=== PATIENT | male | born 1960 | race Caucasian/White ===

== ENCOUNTER → 2021-06-09 | Outpatient (CLI) | payer OTHER ==
[~2021-06-09] MED LIST: ASPIRIN 81M81 MG/TA2 PO; CARDENE 20MG CA20 M1 PO; GLUCOPHAGE1000 MG PO; NITROSTAT0.4 MG/TAB SL; TOPROL XL100 MG PO; ZESTRIL 20MG TA20 MG PO; ZOCOR 40MG40 MG PO
== END ==
LOC: COL.VAS 12:47
DX: R06.02 Shortness of breath (principal)

== ENCOUNTER 2024-03-28 16:02 | Inpatient (IN) | payer OTHER ==
[2024-03-28] VITALS (170 sets, daily range): BP systolic 111–138; BP diastolic 78–81; PULSE 70–94; TEMP 98.4–98.7; O2SAT 76–100
[~2024-03-28] VITALS: Ht 172.7 cm; Wt 88.9 kg
[~2024-03-28 16:02] MED LIST changes: +ASPIRIN E.C. 8181 MG PO; +LIPITOR20 MG PO; +LOPRESSOR 225 MG/TAB PO; +PLAVIX 75MG TAB75 MG PO; +PROAIR HFA0.09 MG/AC IH; +RANEXA 500MG T500 MG PO; +RT ADVAIR HFA 1112 G IH; +TRELEGY ELLIPT1 EACH IH; +TRULICITY1.5 MG/0.5 SQ; +UROXATRAL10 M1 PO; -ZESTRIL 20MG TA20 MG PO; +ZESTRIL40 MG PO
--- NOTE | 2024-03-28 18:36 | NUR ---
181 Report received from [facility] RN. 1836 Pt arrived to ICU via EMS stretcher. Pt transferred to ICU bed with assist. Pt changed into gown. Pt belongings (clothes, shoes, phone, and black bag) placed in cabinet in pt room. Pt attached to monitors. Transfer of care completed at this time. Pt settled into bed. Pt does not have any concerns at this time.
--- NOTE | 2024-03-28 19:00 | NUR ---
THIS NURSE RECIEVED REPORT FROM ADONIS GONZALEZ. PATIENT IS ALERT AND IN BED. PATIENT'S VITAL SIGNS ARE WNL AT THIS TIME. PATIENT HAS A 20G IN THE R AC. NO FLUIDS OR MEDICATIONS RUNNING AT THIS TIME. PATIENT STATED NO CONCERNS AT THIS MOMENT. BED IN LOW POSITION, CALL LIGHT WITHIN THE PATIENT'S REACH.
[2024-03-28 21:16] LABS: BASO % 0.4 % (0.0-2.0); EOS # 0.1 K/mm3 (0.0-0.7); GRAN # 7.3 K/mm3 (1.4-6.5); GRAN % 78.6 % (42.2-75.2); HEMOGLOBIN 11.7 g/dl (13.5-18.0); LYMPH # 1.2 K/mm3 (1.2-3.4); LYMPH % 13.1 % (20.0-51.0); MEAN CELL VOLUME 83 fl (80.0-100.0); MEAN CORPUSCULAR HEMOGLOBIN 28 pg (27-31); MEAN CORPUSCULAR HGB CONC 34 g/dl (33.0-37.0); MEAN PLATELET VOLUME 11.5 fl (7.4-10.4); MONO # 0.6 K/mm3 (0.1-0.6); MONO % 6.7 % (1.7-9.3); PLATELET COUNT 210 K/mm3 (130-400); RED BLOOD COUNT 4.16 M/mm3 (4.20-5.60); REDCELL DISTRIBUTION WIDTH-CV 12.9 % (11.5-14.5)
[2024-03-28 21:17] LABS: HEMATOCRIT 34.5 % (42.0-52.0)
[2024-03-28 21:34] LABS: ALBUMIN 2.6 g/dL (3.4-4.8); BILIRUBIN,TOTAL 0.7 mg/dL (0.2-1.2); CALCIUM 8.3 mg/dL (8.4-10.2); CREATININE, serum 4.64 mg/dL (0.72-1.25); POTASSIUM 4.7 mEq/L (3.5-4.5); TOTAL PROTEIN 5.8 g/dl (6.2-8.1)
[2024-03-28] MEDS ORDERED: Ranolazine ER 500 MG TAB PO SCH (22:56)
--- NOTE | 2024-03-28 23:00 | NUR ---
THIS NURSE PLACED A 16F BENZ ON THIS PATIENT. UPON URINE RETURN, THE BENZ WAS SECURED ON THE PATIENT'S LEFT LEG. 550 ML DRAINED INSTANTLY. PATIENT TOLERATED THE PROCEDURE VERY WELL. STATED A RELIEF OF PAIN IN THE ABDOMEN REGION.
[2024-03-28] MEDS ORDERED: LR 1,000 ML IV SCH (23:15)
[2024-03-28] MEDS ORDERED: Ondansetron 4 MG/2 ML VIAL IV PRN (23:15)
[2024-03-28] MEDS ORDERED: Acetaminophen 325 MG TAB PO PRN (23:15)
[2024-03-28] MEDS ORDERED: CIPROFLOXACIN IV SCH (23:45)
[2024-03-28] MEDS ORDERED: DEXTROSE IV SCH (23:45)
[2024-03-28] MEDS ORDERED: Albuterol/Ipratropium 3 MG-0.5 MG/3 ML Neb Soln IH PRN (23:45)
[2024-03-29] VITALS (702 sets, daily range): BP systolic 121–154; BP diastolic 76–116; PULSE 66–89; TEMP 97.6–98.7; O2SAT 84–100
[2024-03-29] MEDS ORDERED: Insulin Lispro (HumaLOG) SQ SCH
[2024-03-29 04:54] LABS: BASO # 0.1 K/mm3 (0.0-0.2); BASO % 0.7 % (0.0-2.0); EOS # 0.1 K/mm3 (0.0-0.7); EOS % 1.4 % (0.0-4.0); GRAN # 6.5 K/mm3 (1.4-6.5); HEMOGLOBIN 11.8 g/dl (13.5-18.0); LYMPH # 1.1 K/mm3 (1.2-3.4); LYMPH % 12.5 % (20.0-51.0); MEAN CELL VOLUME 82 fl (80.0-100.0); MEAN CORPUSCULAR HEMOGLOBIN 28 pg (27-31); MEAN CORPUSCULAR HGB CONC 34 g/dl (33.0-37.0); MEAN PLATELET VOLUME 11.4 fl (7.4-10.4); MONO # 0.7 K/mm3 (0.1-0.6); PLATELET COUNT 223 K/mm3 (130-400); RED BLOOD COUNT 4.22 M/mm3 (4.20-5.60); REDCELL DISTRIBUTION WIDTH-CV 13.1 % (11.5-14.5)
[2024-03-29 05:01] LABS: HEMATOCRIT 34.4 % (42.0-52.0)
[2024-03-29 05:28] LABS: ALBUMIN 2.7 g/dL (3.4-4.8); BILIRUBIN,TOTAL 0.7 mg/dL (0.2-1.2); CALCIUM 8.7 mg/dL (8.4-10.2); CREATININE, serum 3.13 mg/dL (0.72-1.25); POTASSIUM 4.3 mEq/L (3.5-4.5); TOTAL PROTEIN 5.9 g/dl (6.2-8.1)
--- NOTE | 2024-03-29 06:10 | NUR ---
PATIENT IS RESTING COMFORTABLY. PATIENT HAS A 16F BENZ IN, WITH NO DEPENDENT LOOPS OR KINKS NOTED. DRAINING ACCORDINGLY. PATIENT HAS A 20G TO THE R AC, WITH LR RUNNING AT 125 ML/HR. PATIENT HAS GLASSES AND THOSE ARE ON THE BEDSIDE TABLE. PHONE AND BAG ALSO ON THE BEDSIDE TABLE. PATIENT STATES SHOULD COME DURING THE DAY TODAY. PATIENT HAS BEEN VERY PLEASANT. BED IN LOW POSITION AND CALL LIGHT WITHIN THE PATIENT'S REAC.
[2024-03-29] MEDS ORDERED: Budesonide Neb Susp 0.5 MG/2 ML AMP IH SCH (07:00)
[2024-03-29] MEDS ORDERED: LR 1,000 ML IV SCH (07:15)
[2024-03-29] MEDS ORDERED: Dextrose 50% Water 25 GM/50 ML SYRINGE IV PRN (07:15)
[2024-03-29] MEDS ORDERED: Dextrose (Glucose) 15 GM (4 x 3.75 GM) Chewable TABLET PACK PO PRN (07:15)
[2024-03-29] MEDS ORDERED: Glucagon 1 MG VIAL IM PRN (07:15)
[2024-03-29] MEDS ORDERED: Pantoprazole 40 MG in NS 10 ML IV SCH (09:00)
[2024-03-29] MEDS ORDERED: Metoprolol Tartrate 25 MG TAB PO SCH (09:00)
[2024-03-29] MEDS ORDERED: Fluticasone/Umeclidinium/Vilanterol **** subs to Budesonide + Umeclid/Vilant IH SCH (09:00)
[2024-03-29] MEDS ORDERED: Umeclidinium/Vilanterol 62.5-25 MCG INHALATION/INHALER IH SCH (09:00)
--- NOTE | 2024-03-29 10:29 | NUR ---
PT IS AWAKE IN BED WATCHING TV AND TALKING ON THE PHONE. THE PATIENT IS ALERT AND ORIENTED. HE HAS A BENZ CATHETER IN PLACE DRAINING PINK TINGED URINE. HE IS ON ROOM AIR. HE HAS NO COMPLAINTS OF PAIN. HE HAS ONE IV INFUSING FLUIDS.
[2024-03-29] MEDS ORDERED: cefTRIAXone 1 G in Water For Injection,Sterile 10 ML IV SCH (11:00)
--- NOTE | 2024-03-29 11:39 | NUR ---
Malted Milk Supervisor and SW student met with patient to discuss discharge planning. Patient lives in [place] with his , Karla (ph#[phone]) and goes to [facility] for primary care and medications. Patient does not use any DME and is independent with [employer], including driving. Patient does not have DPOA-HC and was not interested in completing one at this time but stated he would think about it. Patient plans to return home at time of discharge. Discharge Plan: Home
[2024-03-29] MEDS ORDERED: Meclizine 25 MG TAB PO SCH (14:00)
[2024-03-29] MEDS ORDERED: Famotidine 20 MG TAB PO SCH (14:00)
[2024-03-29] MEDS ORDERED: Ondansetron 4 MG/2 ML VIAL IV PRN (16:15)
[2024-03-29] MEDS ORDERED: hydrALAZINE 20 MG/ML 1 ML VIAL IV PRN (16:15)
[2024-03-29] MEDS ORDERED: HYDROmorphone 1 MG/1 ML SYRINGE [PACU/SDC ONLY] IV PRN (16:15)
[2024-03-29] MEDS ORDERED: fentaNYL 50 MCG/ML 1 ML SYRINGE/VIAL [PACU/SDC ONLY] IV PRN ×2 (16:15)
[2024-03-29] MEDS ORDERED: Meperidine 50 MG/ML 1 ML VIAL IV PRN (16:15)
[2024-03-29] MEDS ORDERED: droPERidol 2.5 MG/ML 2 ML VIAL IV PRN (16:15)
[2024-03-29] MEDS ORDERED: fentaNYL 50 MCG/ML 2 ML VIAL ONE ×2 (16:27→17:08)
--- NOTE | 2024-03-29 16:27 | NUR ---
PATIENT TRANSFERED FROM ICU AT 1430 TO FLOOR. VSS. CATHETER IN PLACE OUTPUT CLEAR PINK IN COLOR. PATIENT REPORTS NO PAIN AT THIS TIME. PATIENT AWAITING TO GO DOWN FOR SURGERY FOR KIDNEY STONES THIS AFTERNOON. CALL LIGHT IN REACH
[2024-03-29] MEDS ORDERED: NS 10 ML IV ONE (16:28)
[2024-03-29] MEDS ORDERED: ePHEDrine 50 MG/ML VIAL ONE (16:41)
[2024-03-29] MEDS ORDERED: Iohexol 350 - 100 ML VIAL URETER-R ONE (17:00)
[2024-03-29] MEDS ORDERED: Lidocaine 2% (20 MG/ML) 20 ML UROJET UR ONE (17:30)
--- NOTE | 2024-03-29 18:40 | NUR ---
PATIENT ARRIVED BACK TO FLOOR FROM PACU AT 1835. VSS. PATIENT HAS NO REQUEST AT THIS TIME JUST STATES HE IS READY TO EAT SOMETHING. CALL LIGHT IN REACH
[2024-03-29] MEDS ORDERED: Atorvastatin 20 MG TAB PO SCH (21:00)
--- NOTE | 2024-03-30 02:56 | NUR ---
PT IN BED. ASSESSMENT COMPLETED EARLIER - VSS, LR RUNNING THROUGH IV AT 125/HR- NO SIGNS OF PHLEBITIS OR INFILTRATION. MEDICATIONS ADMINISTERED PER EMAR. BENZ EMPTIED. CALL LIGHT IS WITHIN REACH NO COMPLAINTS AT THIS TIME. BED ALARMS IS ON.
[2024-03-30 04:18] VITALS: BP 154/83; PULSE 74; TEMP 98.8
[2024-03-30 06:51] LABS: BASO # 0.1 K/mm3 (0.0-0.2); BASO % 0.6 % (0.0-2.0); EOS # 0.3 K/mm3 (0.0-0.7); EOS % 2.8 % (0.0-4.0); GRAN # 7.3 K/mm3 (1.4-6.5); GRAN % 73.3 % (42.2-75.2); HEMOGLOBIN 11.5 g/dl (13.5-18.0); LYMPH # 1.5 K/mm3 (1.2-3.4); MEAN CELL VOLUME 83 fl (80.0-100.0); MEAN CORPUSCULAR HEMOGLOBIN 28 pg (27-31); MEAN CORPUSCULAR HGB CONC 34 g/dl (33.0-37.0); MEAN PLATELET VOLUME 11.3 fl (7.4-10.4); MONO # 0.8 K/mm3 (0.1-0.6); PLATELET COUNT 215 K/mm3 (130-400); RED BLOOD COUNT 4.08 M/mm3 (4.20-5.60)
[2024-03-30 07:33] LABS: ALBUMIN 2.4 g/dL (3.4-4.8); BILIRUBIN,TOTAL 0.7 mg/dL (0.2-1.2); CALCIUM 8.3 mg/dL (8.4-10.2); CREATININE, serum 1.26 mg/dL (0.72-1.25); POTASSIUM 3.9 mEq/L (3.5-4.5); TOTAL PROTEIN 5.5 g/dl (6.2-8.1)
[2024-03-30 08:00] VITALS: BP 125/81; PULSE 92; TEMP 97.5
--- NOTE | 2024-03-30 08:00 | NUR ---
SHIFT ASSESSMENT COMPLETED. VSS. PATIENT AWAKE IN BED FINISHING BREAKFAST. ALL MORNING MEDS GIVEN PER ORDERES. PATIENT REPORTS NO PAIN AT THIS TIME. PATIENT HAS NO OTHER NEEDS. CALL LIGHT IN REACH
[2024-03-30 11:55] VITALS: BP 146/93; PULSE 71; TEMP 98.2
[2024-03-30 16:20] VITALS: BP 155/94; PULSE 80; TEMP 98.8
[2024-03-30] MEDS ORDERED: Docusate Sodium 100 MG CAP PO SCH (17:04)
[2024-03-30 19:28] VITALS: BP 128/83; PULSE 80; TEMP 98.2
[2024-03-30] MEDS ORDERED: Insulin Lispro (HumaLOG) SQ SCH (21:00)
--- NOTE | 2024-03-30 21:33 | NUR ---
PT AWAKE AND RESTING IN BED. SCHEDULED MEDS GIVEN PER eMAR. PT REFUSED RANALOZINE, STATING HE DOES NOT TAKE IT AT HOME. PT DENIES PAIN. GLASSES IN PLACE. FALL PRECAUTIONS IN PLACE WITH BED ALARM. NO FURTHER CONCERNS. CALL LIGHT WITHIN REACH.
[2024-03-30 23:57] VITALS: BP 137/81; PULSE 77; TEMP 98.4
[2024-03-31] VITALS (8 sets, daily range): BP systolic 126–153; BP diastolic 82–90; PULSE 67–97; TEMP 97.5–98.5
--- NOTE | 2024-03-31 03:34 | NUR ---
PT C/O HEADACHE WITH 3/10 PAIN. PRN TYLENOL OFFERED AND GIVEN.
[2024-03-31 06:51] LABS: BASO # 0.1 K/mm3 (0.0-0.2); BASO % 0.5 % (0.0-2.0); EOS # 0.5 K/mm3 (0.0-0.7); GRAN # 6.6 K/mm3 (1.4-6.5); GRAN % 70.1 % (42.2-75.2); HEMOGLOBIN 11.7 g/dl (13.5-18.0); LYMPH # 1.6 K/mm3 (1.2-3.4); LYMPH % 16.9 % (20.0-51.0); MEAN CELL VOLUME 83 fl (80.0-100.0); MEAN CORPUSCULAR HEMOGLOBIN 28 pg (27-31); MEAN CORPUSCULAR HGB CONC 34 g/dl (33.0-37.0); MEAN PLATELET VOLUME 11.7 fl (7.4-10.4); MONO # 0.7 K/mm3 (0.1-0.6); MONO % 7.2 % (1.7-9.3); PLATELET COUNT 209 K/mm3 (130-400); RED BLOOD COUNT 4.14 M/mm3 (4.20-5.60)
[2024-03-31 06:58] LABS: ALBUMIN 2.4 g/dL (3.4-4.8); BILIRUBIN,TOTAL 0.7 mg/dL (0.2-1.2); CALCIUM 8.2 mg/dL (8.4-10.2); HEMATOCRIT 34.5 % (42.0-52.0); POTASSIUM 3.6 mEq/L (3.5-4.5); TOTAL PROTEIN 5.8 g/dl (6.2-8.1)
--- NOTE | 2024-03-31 08:50 | NUR ---
Spoke to Dr. Mchugh, verbal orders to DC solorzano. Patient tolerated solorzano removal well. Reports solorzano removal was much better than insertion. He did well with breakfast. Hopeful for discharge home today. Will set him up for shower.
--- NOTE | 2024-03-31 10:15 | NUR ---
Patient did well with shower, reports feeling refreshed after. Only complaint at this time is constipation. Prune juice and grape juice provided.
--- NOTE | 2024-03-31 11:06 | NUR ---
Called [facility] and spoke to Someone in [place] requesting patient culture results be faxed to our facility.
--- NOTE | 2024-03-31 12:08 | NUR ---
given faxed lab results from [facility]. Also made her aware of patient blood glucose, insulin per sliding scale
[2024-03-31] MEDS ORDERED: Polyethylene Glycol 3350 17 GM PDS PO SCH (13:40)
[2024-03-31] MEDS ORDERED: CEPHALEXIN500 M1 PO (14:07)
[2024-03-31] MEDS ORDERED: FLOMAX 0.40.4 MG/CAP PO (14:12)
--- NOTE | 2024-03-31 15:57 | NUR ---
Patient independent in room. Voiding frequently, but without problems. Breifs given to patient. All discharge education given. He is aware of follow up appt, even reports already being scheduled at Tuesday. Medication list reviewed and patient picking up prescriptions at [facility]. Last dose given reviewed. Will await for to pick him up.
--- NOTE | 2024-03-31 16:17 | NUR ---
INT DC. TELE OFF. PATIENT REQUESTING SLIDING SCALE INSULIN PRIOR TO DISCHARGE HOME, TO MAKE SURE SUGAR STABLAIZED. PATIENT AMBULATED OUT WITH AND NURSE. TAKING HIM HOME
== END 2024-03-31 16:18 | disposition home or self-care (01) | DRG 659 ==
LOC: ICU 16:02 → SURG 03-29 14:33
PROVIDERS: Physician Assistant; Urology; ADMIT Hospitalist
PROC: 0T768DZ Dilation of Right Ureter with Intraluminal Device, Via Natural or Artificial Opening Endoscopic (ICD-10-PCS; principal; 2024-03-29 16:45)
PROC: 0TJ98ZZ Inspection of Ureter, Via Natural or Artificial Opening Endoscopic (ICD-10-PCS; 2024-03-29 16:45)
PROC: 0TCB8ZZ Extirpation of Matter from Bladder, Via Natural or Artificial Opening Endoscopic (ICD-10-PCS; 2024-03-29 16:45)
DX: N13.6 Pyonephrosis (principal); K85.90 Acute pancreatitis without necrosis or infection, unspecified; E87.20 Acidosis, unspecified; N17.9 Acute kidney failure, unspecified; E11.9 Type 2 diabetes mellitus without complications; I10 Essential (primary) hypertension; E78.5 Hyperlipidemia, unspecified; I25.85 Chronic coronary microvascular dysfunction; D86.0 Sarcoidosis of lung; E87.5 Hyperkalemia; Z79.84 Long term (current) use of oral hypoglycemic drugs; Z79.82 Long term (current) use of aspirin; Z79.899 Other long term (current) drug therapy; Z79.02 Long term (current) use of antithrombotics/antiplatelets; Z88.5 Allergy status to narcotic agent; Z23 Encounter for immunization
CPT/HCPCS: C1769; C2617; J0690; J0696; J0744; J1815; J2405; J2470; J2704; J3010; J7120; Q9967

== ENCOUNTER 2024-04-02 00:48 | Observation (INO) | payer OTHER ==
[~2024-04-02] VITALS: Ht 172.7 cm; Wt 87.9 kg
[2024-04-02] VITALS (8 sets, daily range): BP systolic 125–148; BP diastolic 78–85; PULSE 61–75; TEMP 97.4–98.7
[~2024-04-02 00:48] MED LIST changes: +CEPHALEXIN500 M1 PO; +FLOMAX 0.40.4 MG/CAP PO
[2024-04-02] MEDS ORDERED: NS 1,000 ML IV SCH (01:15)
[2024-04-02] MEDS ORDERED: Acetaminophen 325 MG TAB PO PRN (01:15)
[2024-04-02] MEDS ORDERED: Albuterol 0.083% Neb Soln 2.5 MG/3 ML UD IH PRN (01:15)
[2024-04-02] MEDS ORDERED: Ondansetron 4 MG/2 ML VIAL IV PRN (01:15)
[2024-04-02] MEDS ORDERED: TRULICITY4.5 MG/0.5 SQ (01:16)
[2024-04-02] MEDS ORDERED: Dextrose (Glucose) 15 GM (4 x 3.75 GM) Chewable TABLET PACK PO PRN (02:45)
[2024-04-02] MEDS ORDERED: Glucagon 1 MG VIAL IM PRN (02:45)
[2024-04-02] MEDS ORDERED: Dextrose 50% Water 25 GM/50 ML SYRINGE IV PRN (02:45)
--- NOTE | 2024-04-02 05:30 | NUR ---
pt ARRIVED TO THE SURGICAL FLOOR AROUND 0245HRS TO ROOM 328. pt A&O X 4; VSS; O2 RA. pt DENIED GENERAL PAIN, CHEST PAIN, PALPITATIONS, SOB, N,V,D OR DIZZINESS. ADMISSIONS ASSESSMENT AND MED REC COMPLETE. pt ORIENTED TO ROOM AND HOSPIAL POLICY. ALL QUESTIONS AND CONCERNS ADDRESS. CALL LIGHT WITHIN REACH.
[2024-04-02 06:15] LABS: BASO % 0.5 % (0.0-2.0); EOS # 0.3 K/mm3 (0.0-0.7); EOS % 3.8 % (0.0-4.0); GRAN # 5.7 K/mm3 (1.4-6.5); GRAN % 73.5 % (42.2-75.2); HEMOGLOBIN 10.8 g/dl (13.5-18.0); LYMPH # 1.1 K/mm3 (1.2-3.4); LYMPH % 14.6 % (20.0-51.0); MEAN CELL VOLUME 83 fl (80.0-100.0); MEAN CORPUSCULAR HEMOGLOBIN 28 pg (27-31); MEAN CORPUSCULAR HGB CONC 34 g/dl (33.0-37.0); MEAN PLATELET VOLUME 11.5 fl (7.4-10.4); MONO # 0.6 K/mm3 (0.1-0.6); MONO % 7.3 % (1.7-9.3); PLATELET COUNT 198 K/mm3 (130-400); RED BLOOD COUNT 3.85 M/mm3 (4.20-5.60); REDCELL DISTRIBUTION WIDTH-CV 12.9 % (11.5-14.5)
[2024-04-02 06:29] LABS: CALCIUM 7.8 mg/dL (8.4-10.2); CREATININE, serum 2.34 mg/dL (0.72-1.25); POTASSIUM 3.6 mEq/L (3.5-4.5)
[2024-04-02 06:33] LABS: HEMATOCRIT 32.1 % (42.0-52.0)
[2024-04-02] MEDS ORDERED: Formoterol 20 MCG,Budesonide 0.5 MG IH SCH (07:00)
[2024-04-02] MEDS ORDERED: Budesonide Neb Susp 0.5 MG/2 ML AMP IH SCH (07:00)
--- NOTE | 2024-04-02 07:17 | NUR ---
PT REFUDED INHALERS AND BREATHING TX ON.Y TAKES NEEDED AT HOME. RN NOTIFIED
[2024-04-02] MEDS ORDERED: Insulin Lispro (HumaLOG) SQ SCH (08:00)
--- NOTE | 2024-04-02 08:51 | NUR ---
family service caseworker met with pt to discuss discharge planning. He reports to live with his , Karla [phone] in [place]. He sees a provider at [facility] and obtains medications from there or [facility] with no issues. He confirmed to have [employer] insurance. Pt is independent with [employer] and uses a CPAP for DME. He does not have a DPOA-HC and is agreeable to his being NOK. He reports no concerns for mobility. Pt is a re-admit. Discharge Plan: home
[2024-04-02] MEDS ORDERED: Fluticasone/Umeclidinium/Vilanterol **** subs to Budesonide + Umeclid/Vilant IH SCH (09:00)
[2024-04-02] MEDS ORDERED: Pantoprazole 40 MG in NS 10 ML IV SCH (09:00)
[2024-04-02] MEDS ORDERED: Umeclidinium/Vilanterol 62.5-25 MCG INHALATION/INHALER IH SCH (09:00)
[2024-04-02] MEDS ORDERED: Metoprolol Tartrate 25 MG TAB PO SCH (09:00)
[2024-04-02] MEDS ORDERED: Ranolazine ER 500 MG TAB PO SCH (09:00)
[2024-04-02] MEDS ORDERED: LANTUS SOLOS100 U/ML SQ (09:05)
--- NOTE | 2024-04-02 10:20 | NUR ---
Patient resting this am without complaints. made aware of consultRosemary Siddiqui to DD. IvF and antibioitocs as ordered.
--- NOTE | 2024-04-02 11:30 | NUR ---
Patient resting in bed. Denies pain. Lunch ordered. Insulin as orderd
--- NOTE | 2024-04-02 13:37 | NUR ---
D: Lace Roller stopped by room on rounds. A: Pt was resting and content. Originally from [place], now lives in [place] after senior care from . Pt appreciated the visit. P: Lace Roller informed pt that if he needed anything from the dairy husbandry teacher area to let his nurse know. Lace Roller will follow up as needed.
--- NOTE | 2024-04-02 18:35 | NUR ---
Patient resting in bed. Offered to get him to chair, he was not interested. Did reviewed importance of activity with him. Tolerated dinner, insulin per sliding scale. Valenzuela to dd, draining to DD. Will report off to nighturse
[2024-04-02] MEDS ORDERED: Atorvastatin 20 MG TAB PO SCH (21:00)
[2024-04-03] VITALS (11 sets, daily range): BP systolic 138–177; BP diastolic 78–93; PULSE 53–64; TEMP 97.8–98.3
[2024-04-03] MEDS ORDERED: cefTRIAXone 1 G in Water For Injection,Sterile 10 ML IV SCH
--- NOTE | 2024-04-03 02:33 | NUR ---
ASSESSMENT COMPLETED EARLIER. MEDICATIONS ADMINISTERED PER EMAR. PT HAS NO COMPLAINTS AT THIS TIME. BENZ IS DRAINING WITH NO LOOPS OR KINKS- URINE IS YELLOW AND CLEAR. IV IS CURRENTLY INFUSING IN RIGHT FOREARM. THERE ARE NO SIGNS OF PHELBITIS OR INFILTRATION. PT HAS CALL LIGHT WITHIN REACH, BED IS IN THE LOWEST POSITION.
--- NOTE | 2024-04-03 03:33 | NUR ---
PCT REPORTED ELEVATED BP. THIS NURSE OBTAINED A MANUAL BP OF 144/78
[2024-04-03 06:21] LABS: BASO # 0.1 K/mm3 (0.0-0.2); BASO % 0.8 % (0.0-2.0); EOS # 0.4 K/mm3 (0.0-0.7); GRAN # 4.5 K/mm3 (1.4-6.5); GRAN % 61.8 % (42.2-75.2); HEMOGLOBIN 10.7 g/dl (13.5-18.0); LYMPH # 1.7 K/mm3 (1.2-3.4); LYMPH % 23.1 % (20.0-51.0); MEAN CELL VOLUME 84 fl (80.0-100.0); MEAN CORPUSCULAR HEMOGLOBIN 28 pg (27-31); MEAN CORPUSCULAR HGB CONC 34 g/dl (33.0-37.0); MEAN PLATELET VOLUME 11.5 fl (7.4-10.4); MONO # 0.6 K/mm3 (0.1-0.6); MONO % 7.9 % (1.7-9.3); PLATELET COUNT 224 K/mm3 (130-400); RED BLOOD COUNT 3.77 M/mm3 (4.20-5.60)
[2024-04-03 06:24] LABS: HEMATOCRIT 31.6 % (42.0-52.0)
[2024-04-03 06:35] LABS: CALCIUM 7.8 mg/dL (8.4-10.2); CREATININE, serum 1.23 mg/dL (0.72-1.25); POTASSIUM 3.5 mEq/L (3.5-4.5)
--- NOTE | 2024-04-03 11:35 | NUR ---
D: Inspector Plating stopped by room for a follow up A: Pt has no needs right now but appreciated the visit. P: Inspector Plating made sure pt knew to contact nurse if he needed anything.
[2024-04-03] MEDS ORDERED: LEVAQUIN 750MG750 M1 PO (14:17)
[2024-04-03] MEDS ORDERED: levoFLOXacin 750 MG TAB PO ONE (14:30)
[2024-04-03] MEDS ORDERED: amLODIPine 10 MG TAB PO SCH (16:57)
--- NOTE | 2024-04-03 19:01 | NUR ---
DISCHARGE INSTUCTIONS AND LEG BAG TEACHING COMPLETE. PT VERBLAIZED UNDERTANDING. PT LEFT UNIT AMBULATORY WITH STAFF.
== END 2024-04-03 18:15 | disposition home or self-care (01) ==
LOC: SURG 00:48
PROVIDERS: Nurse Practitioner Family; ADMIT Internal Medicine
DX: R33.9 Retention of urine, unspecified (principal); N17.9 Acute kidney failure, unspecified; E11.9 Type 2 diabetes mellitus without complications; D86.0 Sarcoidosis of lung; I25.85 Chronic coronary microvascular dysfunction; I10 Essential (primary) hypertension; E66.9 Obesity, unspecified; E78.5 Hyperlipidemia, unspecified; E87.1 Hypo-osmolality and hyponatremia; N28.9 Disorder of kidney and ureter, unspecified; E87.20 Acidosis, unspecified; D64.9 Anemia, unspecified; K85.90 Acute pancreatitis without necrosis or infection, unspecified; N39.0 Urinary tract infection, site not specified; Z87.891 Personal history of nicotine dependence; Z79.85 Long-term (current) use of injectable non-insulin antidiabetic drugs; Z79.84 Long term (current) use of oral hypoglycemic drugs; Z79.899 Other long term (current) drug therapy; Z79.82 Long term (current) use of aspirin; Z98.84 Bariatric surgery status; Z68.29 Body mass index [BMI] 29.0-29.9, adult
CPT/HCPCS: G0378; G0379; J1815; J2470; J2543; J7030